=== PATIENT | female | born 1990 | race Caucasian/White ===

== ENCOUNTER 2023-08-11 06:15 | Day surgery (SDC) | payer OTHER, SELFPAY ==
[2023-08-03 10:52] LABS: % Eosinophils 2.5 % (0-6); % Immature Granulocytes 0.3 % (0-0.5); % Lymphocytes 38.4 % (20.5-51.1); % Monocytes 7.7 % (1.7-9.3); % Neutrophils 50.1 % (42.2-75.2); Absolute Basophils 0.1 10^3/uL (0-0.2); Absolute Eosinophils 0.2 10^3/uL (0-0.7); Absolute Lymphocytes 2.7 10^3/uL (1.2-3.4); Absolute Monocytes 0.6 10^3/uL (0.1-0.6); Absolute Neutrophils 3.6 10^3/uL (1.4-6.5); Hematocrit 41.4 % (37.0-47.0); Hemoglobin 14.1 g/dL (12.0-16.0); Mean Corp Hgb Conc. 34.1 g/dL (33.0-37.0); Mean Corpuscular Hgb 30.3 pg (27.0-31.0); Mean Corpuscular Volume 88.8 fL (81.0-99.0); Mean Platelet Volume 8.6 fL (7.4-10.4); Nucleated Red Blood Cells % 0 %; Platelet Count 327 10^3/uL (130-400); Red Blood Cell Count 4.66 10^6/uL (4.20-5.40); Red Cell Dist. Width 12.9 % (11.5-14.5); White Blood Cell Count 7.1 10^3/uL (4.8-10.8)
[2023-08-03 10:55] LABS: HCG, Urine Qualitative Screen Negative
[2023-08-03 11:09] VITALS: BMI 29.2
[2023-08-03 11:25] LABS: Blood Urea Nitrogen 13 mg/dl (7-17); Calcium 9.8 mg/dl (8.4-10.2); Carbon Dioxide 27 mmol/L (22-30); Chloride 103 mmol/L (98-107); Estimated Creatinine Clearance 88 ml/min; Glucose 97 mg/dl (70-99); Potassium 4.3 mmol/L (3.5-5.1); Sodium 138 mmol/L (135-145); eGFR > 60.00
[2023-08-11] VITALS (15 sets, daily range): BP systolic 84–116; BP diastolic 44–71; BMI 29.2
[2023-08-11] MEDS: NORMOSOL-R 1000 IV (09:17)
== END 2023-08-11 13:00 | disposition home or self-care (01) ==
LOC: SDS 06:15
PROVIDERS: ATTENDING PHYSICIAN Obstetrics & Gynecology; FAMILY PHYSICIAN Internal Medicine
DX: D06.0 Carcinoma in situ of endocervix (principal); D06.9 Carcinoma in situ of cervix, unspecified
CPT/HCPCS: 57522; 88305; 88307; 36415; 80048; 81025; 85025; 88341; 88342

== ENCOUNTER 2023-09-29 22:07 | Emergency (ER) | payer OTHER, SELFPAY ==
[2023-09-29 22:10] VITALS: BP 128/88
[2023-09-29 22:23] VITALS: BMI 30.8
--- NOTE | 2023-09-29 22:45 | ED.GENMED ---
History of Present Illness
General
Chief Complaint: Flank Pain
Source: patient and records
Exam Limitations: none
Time Seen by Provider: 09/29/23 22:21
Nursing documentation reviewed up to this point in time: agreed with
Travel History
Have you had any contact with someone who has COVID-19?: No
Do you have any symptoms of coronavirus? Fever > 100 degrees, chills, cough, shortness of breath, sore throat, loss of taste or smell, muscle aches, or headache?: No
History of Present Illness
History of Present Illness:
33-year-old female intermittent right flank pain in the right lower abdomen for for 5 days, nausea without vomiting no fever or chills has a urinary hesitancy, but no hematuria denies states she has had 1 prior kidney stone which passed
spontaneously never formally diagnosed
Past History
Past History
ED Past Medical History: Other (ovarian cyst)
ED Past Surgical History: Gynecological (BTL, c section)
Patient has exhibited threatening behavior?: No
PSI?: No
Social History
Tobacco: Smoker
Alcohol: None
Drug: None
Personal: Single
Living: with family
Employment: Employed
Review of Systems
Review of Systems
All Other Systems: Not applicable
Constitutional: Denies fever or fatigue
EENT: Reports no symptoms
Respiratory: Reports no symptoms
ABD/GI: Reports abdominal pain and nausea
: Reports frequency, flank pain and urgency; Denies bleeding
Musculoskeletal: Reports no symptoms
Phy Exam
Physical Exam
Physical Exam:
Physical Exam
General: no apparent distress, not acutely ill
Neck: No jaundice
Heart: s1/s2 regular rate and rhythm, no murmur. equal radial pulses.
Lungs: no acute respiratory distress. clear bilaterally
Abdomen: Mild tenderness in the right flank and right lower abdomen
Neuro: alert and oriented. no focal neurological deficits
Skin: no rash
Psychiatric: well kept. interactive and cooperative
Extremities: no edema.
Course
Orders/Labs/Results
Orders:
Orders
09/29/23 22:15
Test Result ONCE
09/29/23 22:33
IV Insert/Care/Rem.- Treatment PRN
Complete Blood Count/With Diff Urgent
Comprehensive Metabolic Panel Urgent
HCG, Serum Qualitative Screen Urgent
Lipase Urgent
Comment: ADD ON
Urinalysis Reflex To Culture Urgent
Date Specimen was Collected: 09/29/23
Time Specimen was Collected: 22:15
Urine Microscopic Reflex Cult Urgent
Urine Culture Urgent
ELENA Source: U
Specimen Description:
Date Specimen was Collected: 09/29/23
Time Specimen was Collected: 22:15
0.9% Sodium Chloride 1000 ml [Nss] 1,000 ml IV BOLUS
Ketorolac [Toradol] 30 mg IV NOW STA
Ondansetron Injectable [Zofran] 4 mg IV NOW STA
09/29/23 22:34
CT Abd/pel Without Iv Or Oral Urgent
Comment:
Reason For Exam: r flbillien paoin
09/30/23 00:08
Add On- LAB Urgent
Tests Added?: lipase
US Abdomen Complete/Upper Urgent
Comment:
Reason For Exam: pain
09/30/23 01:55
Dicyclomine [Bentyl] 20 mg PO NOW STA
Abnormal Lab Results
09/29/23
22:33
Absolute Lymphs (auto) 3.8 H 10^3/uL
(1.2-3.4)
Absolute Monos (auto) 0.7 H 10^3/uL
(0.1-0.6)
Glucose 100 H mg/dl
(70-99)
ALT 36 H U/L
(0-35)
Leukocyte Esterase Rfl Trace A
(Negative)
Urine Bacteria (Reflex) Moderate A
(Negative)
Urine Glucose 1+ A
(Negative)
09/29/23 22:33
09/29/23 22:33
Vital Signs
Initial and Last Documented VS:
Initial Vital Signs
Temp Pulse Resp BP Pulse Ox
98.6 F 75 20 128/88 100
09/29/23 22:10 09/29/23 22:10 09/29/23 22:10 09/29/23 22:10 09/29/23 22:10
Last Documented Vital Signs
Temp Pulse Resp BP Pulse Ox
98.3 F 90 15 100/68 96
09/30/23 00:10 09/30/23 00:10 09/30/23 00:10 09/30/23 00:10 09/30/23 00:10
MDM/Problems Addressed
Differential Diagnosis Includes:
UTI pyelonephritis renal colic ovarian cyst appendicitis biliary colic ectopic
MDM/Problems Addressed:
Flank pain
*Critical Care Note
Total Time (30-74mins, 75-104mins- exclusive of procedures): Not Applicable
Update Note
Update Note:
11:50 PM, vision radiology report reviewed no acute pathology labs noted urine noted
Reevaluation patient looks well states he is no longer nauseous she has no lower abdominal tenderness does have some slight right upper abdominal tenderness, will check ultrasound
2 AM ultrasound report noted
ED Attending Note
-
Portions of this chart may have been created with voice recognition software.� Occasional wrong word or��sound alike� substitutions may have occurred due to the inherent limitations of voice recognition software.
Discharge Plan
Departure
Patient Disposition: Home (Routine Discharge)
Date of Disposition: 09/30/23
Time of Disposition: 01:55
Patient with high blood pressure during this ER visit?: No
Condition: Good
Covid-19: Not Applicable
Discharge Problem:
Flank pain
Prescriptions:
New
dicyclomine 20 mg tablet
20 mg PO QID PRN (Reason: abdominal cramps) Qty: 20 0RF
ondansetron 4 mg tablet,disintegrating
4 mg PO Q8H PRN (Reason: nausea and vomiting) Qty: 10 0RF
No Action
Zyrtec
1 tab PO DAILY
Referrals:
Migdalia Ngo MD [Family Provider] - Next open appointment
Interventions
Interventions:
*Risk Screen - Suicide Last Done: 09/29/23 22:10
*General Assessment Last Done: 09/29/23 22:10
*Neglect/Abuse Screening Last Done: 09/29/23 22:10
ED- Fall Risk Assessment Last Done: 09/29/23 22:10
*ED COVID-19 Vaccine History Last Done: 09/29/23 22:10
AB-Oevehp-Dctwoegajo Assessment Last Done: 09/30/23 00:00
ED-Female Genitourinary Assessment Last Done: 09/29/23 22:24
Discharge Date and Time
Print Language: BELGIAN
[2023-09-29 22:46] LABS: % Basophils 0.9 % (0-2); % Eosinophils 2.1 % (0-6); % Immature Granulocytes 0.2 % (0-0.5); % Lymphocytes 43.8 % (20.5-51.1); Absolute Basophils 0.1 10^3/uL (0-0.2); Absolute Eosinophils 0.2 10^3/uL (0-0.7); Absolute Lymphocytes 3.8 10^3/uL (1.2-3.4); Absolute Monocytes 0.7 10^3/uL (0.1-0.6); Absolute Neutrophils 3.9 10^3/uL (1.4-6.5); Hematocrit 38.8 % (37.0-47.0); Hemoglobin 13.6 g/dL (12.0-16.0); Mean Corp Hgb Conc. 35.1 g/dL (33.0-37.0); Mean Corpuscular Hgb 29.8 pg (27.0-31.0); Mean Corpuscular Volume 84.9 fL (81.0-99.0); Mean Platelet Volume 8.2 fL (7.4-10.4); Nucleated Red Blood Cells % 0 %; Platelet Count 334 10^3/uL (130-400); Red Blood Cell Count 4.57 10^6/uL (4.20-5.40); Red Cell Dist. Width 12.9 % (11.5-14.5); White Blood Cell Count 8.6 10^3/uL (4.8-10.8)
[2023-09-29 22:50] LABS: Urine Albumin Negative (Neg - Trace); Urine Bilirubin Negative (Negative); Urine Character Clear (Clear); Urine Color Yellow; Urine Glucose 1+ (Negative); Urine Ketone Negative (Negative); Urine Leukocyte Trace (Negative); Urine Nitrite Negative (Negative); Urine Occult Blood Negative (Negative); Urine Specific Gravity 1.015 (<1.030); Urine Urobilinogen 1+ (Neg - 1+)
[2023-09-29 22:58] LABS: HCG, Serum Qualitative Screen Negative
[2023-09-29 23:02] LABS: ALT (SGPT) 36 U/L (0-35); AST (SGOT) 27 U/L (14-36); Albumin 4.7 g/dl (3.5-5.0); Alkaline Phosphatase 120 U/L (38-126); Blood Urea Nitrogen 12 mg/dl (7-17); Calcium 9.5 mg/dl (8.4-10.2); Carbon Dioxide 26 mmol/L (22-30); Chloride 104 mmol/L (98-107); Estimated Creatinine Clearance 90 ml/min; Glucose 100 mg/dl (70-99); Potassium 3.9 mmol/L (3.5-5.1); Sodium 136 mmol/L (135-145); Total Bilirubin 0.5 mg/dl (0.2-1.3); Total Protein 7.4 g/dl (6.3-8.2); eGFR > 60.00
[2023-09-29] MEDS: ZOFRAN 4 MG IV (23:04)
[2023-09-29] MEDS: TORADOL 30 MG IV (23:04)
[2023-09-29] MEDS: NSS 1000 IV (23:05)
[2023-09-29 23:06] LABS: Urine Bacteria Moderate (Negative); Urine Red Blood Cell 0-2 /HPF (0-2)
[2023-09-30 00:10] VITALS: BP 100/68
[2023-09-30 00:44] LABS: Lipase 223 U/L (23-300)
[2023-09-30 02:00] VITALS: BP 110/80
[2023-09-30] MEDS: BENTYL 20 MG PO (02:02)
== END 2023-09-30 02:05 | disposition home or self-care (01) ==
LOC: EMR 22:07
PROVIDERS: EMERGENCY PHYSICIAN Emergency Medicine; FAMILY PHYSICIAN Internal Medicine
DX: R10.31 Right lower quadrant pain (principal); F17.200 Nicotine dependence, unspecified, uncomplicated; Z98.51 Tubal ligation status
CPT/HCPCS: 99284; 96374; 96375; 96361; 74176; 76700; 80053; 81003; 81015; 83690; 84703; 85025; 87086

== ENCOUNTER 2023-11-17 15:16 | Emergency (ER) | payer SELFPAY ==
[2023-11-17 15:27] VITALS: BP 114/73
--- NOTE | 2023-11-17 16:32 | ED.GENMED ---
History of Present Illness
General
Chief Complaint: Musculo-Skeletal Complaint
Source: patient
Exam Limitations: none
Time Seen by Provider: 11/17/23 15:31
Nursing documentation reviewed up to this point in time: agreed with
Travel History
Have you had any contact with someone who has COVID-19?: No
Do you have any symptoms of coronavirus? Fever > 100 degrees, chills, cough, shortness of breath, sore throat, loss of taste or smell, muscle aches, or headache?: No
History of Present Illness
History of Present Illness:
The patient is a 33-year-old female presenting to the emergency department today with concerns of left thumb discomfort worsening over the past week she works as a hairdresser denies specific trauma. Pain made worse with movement of the thumb.
Past History
Past History
ED Past Medical History: Other (ovarian cyst)
ED Past Surgical History: Gynecological (BTL, c section)
Patient has exhibited threatening behavior?: No
PSI?: No
Social History
Tobacco: Smoker
Alcohol: None
Drug: None
Personal: Single
Living: with family
Employment: Employed
Review of Systems
Review of Systems
Allergies reviewed?: Yes
All Other Systems: ROS reviewed and negative except as documented in HPI and ROS
Phy Exam
Physical Exam
Physical Exam:
GENERAL: Alert , in no apparent distress
EYE: pupils equal and reactive
NECK: Supple, no significant adenopathy.
ENT: o/p clr, mmm.
CARDIAC: Regular rate and rhythm .
LUNGS: Clear breath sounds bilaterally, no acute respiratory distress, no wheezes/rales/rhonchi
ABDOMEN: Soft, without focal tenderness, no r/g, no cvat
NEUROLOGICAL: Alert and oriented, no focal neuro deficits
SKIN: Warm and dry, skin intact.
MUSCULOSKELETAL: N mild tenderness palpation to the base of the thumb on the left hand positive Venice test o edema, well perfused.
PSYCH: Normal and appropriate interaction.
Course
Orders/Labs/Results
Orders:
Orders
11/17/23 15:29
CR Hand - Left Min 3 Views Urgent
Comment:
Reason For Exam: pain, swelling
Vital Signs
Initial and Last Documented VS:
Initial Vital Signs
Temp Pulse Resp BP Pulse Ox
98.0 F 85 18 114/73 98
11/17/23 15:27 11/17/23 15:27 11/17/23 15:27 11/17/23 15:27 11/17/23 15:27
Last Documented Vital Signs
Temp Pulse Resp BP Pulse Ox
98.0 F 85 18 114/73 98
11/17/23 15:27 11/17/23 15:27 11/17/23 15:27 11/17/23 15:27 11/17/23 15:27
MDM/Problems Addressed
MDM/Problems Addressed:
33-year-old female presenting to the emergency department today with concerns of ongoing thumb discomfort. She works as a hairdresser. No specific bony tenderness normal pulses normal cap refill x-ray without acute abnormality. Patient with a
positive Venice's test and tenderness to the base of the thumb. Consistent with likely de Quervain's tenosynovitis. Patient was placed in a thumb spica splint and given information for orthopedic follow-up.
*Critical Care Note
Total Time (30-74mins, 75-104mins- exclusive of procedures): Not Applicable
ED Attending Note
-
Portions of this chart may have been created with voice recognition software.� Occasional wrong word or��sound alike� substitutions may have occurred due to the inherent limitations of voice recognition software.
Discharge Plan
Departure
Patient Disposition: Home (Routine Discharge)
Date of Disposition: 11/17/23
Time of Disposition: 16:33
Patient with high blood pressure during this ER visit?: No
Condition: Good
Covid-19: Not Applicable
Discharge Problem:
De Quervain's disease (tenosynovitis)
Instructions: de Quervain tendinopathy
Prescriptions:
No Action
Zyrtec
1 tab PO DAILY
dicyclomine 20 mg tablet
20 mg PO QID PRN (Reason: abdominal cramps) Qty: 20 0RF
ondansetron 4 mg tablet,disintegrating
4 mg PO Q8H PRN (Reason: nausea and vomiting) Qty: 10 0RF
Referrals:
Millie Castellanos DO [Family Provider] -
Wilson Lo MD [Active] - Follow up in 5-7 days
Activity Restrictions/Additional Instructions:
You came to the emergency department today with concerns of thumb discomfort. You likely have a tenosynovitis to the base of your thumb. Please use the thumb spica splint follow-up with the hand doctor. You also use an NSAID to help with
inflammation as well as ice and elevate. Return to the emergency department any worsening, new or concerning symptoms.
Interventions
Interventions:
*General Assessment Last Done: 11/17/23 15:27
*ED COVID-19 Vaccine History Last Done: 11/17/23 15:27
Discharge Date and Time
Print Language: UZBEK
== END 2023-11-17 16:50 | disposition home or self-care (01) ==
LOC: EMR 15:16
PROVIDERS: EMERGENCY PHYSICIAN Emergency Medicine; FAMILY PHYSICIAN Internal Medicine
DX: M65.4 Radial styloid tenosynovitis [de Quervain] (principal); F17.200 Nicotine dependence, unspecified, uncomplicated; Z98.51 Tubal ligation status
CPT/HCPCS: 99283; 73130

== ENCOUNTER 2024-01-27 15:25 | Emergency (ER) | payer SELFPAY ==
[2024-01-27 15:25] VITALS: BMI 29.2
[2024-01-27 15:26] VITALS: BP 117/89
--- NOTE | 2024-01-27 17:11 | ED.GENMED ---
History of Present Illness
<Uriah Knott MD, Resident - Last Filed: 01/27/24 19:13>
General
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
Time Seen by Provider: 01/27/24 16:32
History of Present Illness
History of Present Illness:
33-year-old female,Ms Peggy Muñoz with past medical history significant for PCOD, carcinoma cervix status post LEEP, July 2023 presented to the ER reporting left lower quadrant pain and spotting since 3 weeks. The pain is gradual in onset,
continuous, squeezing, nonradiating, 12/26 currently, patient took some naproxen, Aleve, Tylenol without much benefit. Patient was on Depo medroxyprogesterone, last shot in June 2023 and she thought her regular menses were returning, and started
as spotting. Patient did not take any pain medication since 1 week. Patient has seen her CLINICAL PRACTICE CONSULTANT on 01/24/2024. No history of fever/chills, lightheadedness/dizziness, chest pain, SOB, dysuria, diarrhea. History of tubal ligation in March 2020.
Past History
<Uriah Knott MD, Resident - Last Filed: 01/27/24 19:13>
Past History
ED Past Medical History: Other (ovarian cyst)
ED Past Surgical History: Gynecological (BTL, c section)
Patient has exhibited threatening behavior?: No
PSI?: No
Social History
Tobacco: Smoker
Alcohol: None
Drug: None
Personal: Single
Living: with family
Employment: Employed
Review of Systems
<Uriah Knott MD, Resident - Last Filed: 01/27/24 19:13>
Review of Systems
All Other Systems: ROS reviewed and negative except as documented in HPI and ROS
Phy Exam
<Uriah Knott MD, Resident - Last Filed: 01/27/24 19:13>
Physical Exam
Physical Exam:
GEN: Well appearing, NAD, WDWN
Eyes: PERRLA, EOMs intact, no scleral icterus
HENT: NCAT, oral mucosa moist, no JVD, no cervical adenopathy.
Lungs: CTAB, no wheezes, rales, rhonchi, normal chest wall excursion
Cardiac: RRR, no M/R/G, no peripheral edema. Radial pulses 2+ bilat
Abdomen: S, tenderness to palpation of the left lower quadrant, no guarding/rigidity, ND, NABS, no masses or hepatosplenomegaly
Pelvic exam: Speculum exam�cervical os normal, vaginal mucosa normal, no masses found, no bleeding noted.
Bimanual exam�no adnexal tenderness
Neuro: AO x 3, no focal deficits to BUE/BLE, normal sensation throughout
Skin: No rashes, petechiae. Normal color, no pallor or jaundice.
Psych: Calm, cooperative, proper hygiene
Course
<Veneela Olman Knott MD, Resident - Last Filed: 01/27/24 19:13>
Orders/Labs/Results
Orders:
Orders
01/27/24 16:34
Test Result ONCE
01/27/24 17:07
Complete Blood Count/With Diff Urgent
Comprehensive Metabolic Panel Urgent
HCG, Serum Qualitative Screen Urgent
01/27/24 17:09
Acetaminophen [Tylenol] 650 mg PO NOW STA
Pelvis & Transvaginal US [US Pelvis W Transvag Combined] Urgent
Comment:
Reason For Exam: abdominal pain
01/27/24 17:25
Urinalysis Urgent
Date Specimen was Collected: 01/27/24
Time Specimen was Collected: 17:23
01/27/24 18:44
Ketorolac [Toradol] 15 mg IV NOW STA
01/27/24 17:07
01/27/24 17:07
Vital Signs
Initial and Last Documented VS:
Initial Vital Signs
Temp Pulse Resp BP Pulse Ox
98.1 F 66 18 117/89 97
01/27/24 15:26 01/27/24 15:26 01/27/24 15:26 01/27/24 15:26 01/27/24 15:26
Last Documented Vital Signs
Temp Pulse Resp BP Pulse Ox
98.1 F 84 18 117/89 100
01/27/24 15:26 01/27/24 16:00 01/27/24 15:26 01/27/24 15:26 01/27/24 17:07
<Juan Cline, DO - Last Filed: 01/27/24 17:54>
Orders/Labs/Results
Orders:
Orders
01/27/24 16:34
Test Result ONCE
01/27/24 17:07
Complete Blood Count/With Diff Urgent
Comprehensive Metabolic Panel Urgent
HCG, Serum Qualitative Screen Urgent
01/27/24 17:09
Acetaminophen [Tylenol] 650 mg PO NOW STA
Pelvis & Transvaginal US [US Pelvis W Transvag Combined] Urgent
Comment:
Reason For Exam: abdominal pain
01/27/24 17:25
Urinalysis Urgent
Date Specimen was Collected: 01/27/24
Time Specimen was Collected: 17:23
01/27/24 18:44
Ketorolac [Toradol] 15 mg IV NOW STA
01/27/24 17:07
01/27/24 17:07
Vital Signs
Initial and Last Documented VS:
Initial Vital Signs
Temp Pulse Resp BP Pulse Ox
98.1 F 66 18 117/89 97
01/27/24 15:26 01/27/24 15:26 01/27/24 15:26 01/27/24 15:26 01/27/24 15:26
Last Documented Vital Signs
Temp Pulse Resp BP Pulse Ox
98.1 F 84 18 117/89 100
01/27/24 15:26 01/27/24 16:00 01/27/24 15:26 01/27/24 15:26 01/27/24 17:07
<Uriah Knott MD, Resident - Last Filed: 01/27/24 19:13>
MDM/Problems Addressed
Differential Diagnosis Includes:
, ectopic , PID, PCOD, cystitis, UTI, renal colic,
MDM/Problems Addressed:
Patient started on IV fluids
CBC, CMP unremarkable beta-hCG negative
Pain control with Tylenol, Toradol
Transvaginal ultrasound-left ovarian dominant follicle�2.2 cm
Urinalysis�no evidence of UTI
Patient is clinically stable to be discharged home.
Follow-up with primary care physician and CLINICAL PRACTICE CONSULTANT within a week.
<Uriah Knott MD, Resident - Last Filed: 01/27/24 19:13>
*Critical Care Note
Total Time (30-74mins, 75-104mins- exclusive of procedures): Not Applicable
ED Attending Note
<Uriah Knott MD, Resident - Last Filed: 01/27/24 19:13>
-
Portions of this chart may have been created with voice recognition software.� Occasional wrong word or��sound alike� substitutions may have occurred due to the inherent limitations of voice recognition software.
<Juan Cline, DO - Last Filed: 01/27/24 17:54>
ED Attending Note
Patient seen and examined by attending physician: Yes
I performed a history and physical exam of patient and discussed management with resident, I reviewed resident's note and agree with documented findings and plan of care.: Yes
ED Attending Note:
I reviewed and agree with history and treatment by Dr. Uriah Knott. My exam revealed
Physical Exam
General: no apparent distress, not acutely ill
Neck: supple. no meningeal signs. normal posterior pharynx
Heart: s1/s2 regular rate and rhythm, no murmur. equal radial
pulses.
HEENT: Pupils equal round reactive to light, EOMI
Lungs: no acute respiratory distress. clear bilaterally
Abdomen: normal bowel sounds. not tender. Mild left lower quadrant/left pelvic tenderness. No no rebound or guarding. No CVAT
Neuro: alert and oriented. no focal neurological deficits
Skin: no rash
Psychiatric: well kept. interactive and cooperative
Extremities: no edema. good distal pulses
Discharge Plan
Departure
Patient Disposition: Home (Routine Discharge)
Date of Disposition: 01/27/24
Time of Disposition: 19:11
Patient with high blood pressure during this ER visit?: No
Condition: Good
Discharge Problem:
Left lower abdominal pain
Instructions: Abdominal Pain
Prescriptions:
No Action
No Current Medications
0
Referrals:
Fly,Millie, DO [Family Provider] -
Activity Restrictions/Additional Instructions:
Follow-up with primary care and CLINICAL PRACTICE CONSULTANT within a week
Interventions
Interventions:
*Risk Screen - Suicide Last Done: 01/27/24 15:26
*General Assessment Last Done: 01/27/24 15:26
*Neglect/Abuse Screening Last Done: 01/27/24 15:26
ED- Fall Risk Assessment Last Done: 01/27/24 16:30
ED-Female Genitourinary Assessment Last Done: 01/27/24 16:30
Discharge Date and Time
Print Language: BENINESE
[2024-01-27 17:28] LABS: % Basophils 0.6 % (0-2); % Eosinophils 2.4 % (0-6); % Immature Granulocytes 0.1 % (0-0.5); % Lymphocytes 37.1 % (20.5-51.1); % Monocytes 6.3 % (1.7-9.3); % Neutrophils 53.5 % (42.2-75.2); Absolute Eosinophils 0.2 10^3/uL (0-0.7); Absolute Lymphocytes 2.7 10^3/uL (1.2-3.4); Absolute Monocytes 0.5 10^3/uL (0.1-0.6); Absolute Neutrophils 3.8 10^3/uL (1.4-6.5); Hematocrit 38.4 % (37.0-47.0); Hemoglobin 13.4 g/dL (12.0-16.0); Mean Corp Hgb Conc. 34.9 g/dL (33.0-37.0); Mean Corpuscular Hgb 29.1 pg (27.0-31.0); Mean Corpuscular Volume 83.3 fL (81.0-99.0); Mean Platelet Volume 8.3 fL (7.4-10.4); Nucleated Red Blood Cells % 0 %; Platelet Count 336 10^3/uL (130-400); Red Blood Cell Count 4.61 10^6/uL (4.20-5.40); Red Cell Dist. Width 12.7 % (11.5-14.5); White Blood Cell Count 7.1 10^3/uL (4.8-10.8)
[2024-01-27 17:33] LABS: Urine Albumin Negative (Neg - Trace); Urine Bilirubin Negative (Negative); Urine Character Clear (Clear); Urine Color Yellow; Urine Glucose Negative (Negative); Urine Ketone Negative (Negative); Urine Leukocyte Negative (Negative); Urine Nitrite Negative (Negative); Urine Occult Blood Negative (Negative); Urine Urobilinogen Negative (Neg - 1+)
[2024-01-27 17:42] LABS: HCG, Serum Qualitative Screen Negative
[2024-01-27] MEDS: TYLENOL 650 MG PO (17:44)
[2024-01-27 17:47] LABS: ALT (SGPT) 29 U/L (0-35); AST (SGOT) 26 U/L (14-36); Albumin 4.6 g/dl (3.5-5.0); Alkaline Phosphatase 118 U/L (38-126); Blood Urea Nitrogen 12 mg/dl (7-17); Calcium 9.7 mg/dl (8.4-10.2); Carbon Dioxide 28 mmol/L (22-30); Chloride 104 mmol/L (98-107); Glucose 80 mg/dl (70-99); Sodium 138 mmol/L (135-145); Total Bilirubin 0.6 mg/dl (0.2-1.3); Total Protein 7.1 g/dl (6.3-8.2); eGFR > 60.00
[2024-01-27 19:10] VITALS: BP 104/70
[2024-01-27] MEDS: TORADOL 15 MG IV (19:11)
== END 2024-01-27 19:37 | disposition home or self-care (01) ==
LOC: EMR 15:25
PROVIDERS: Student in an Organized Health Care Education/Training Program; EMERGENCY PHYSICIAN Emergency Medicine; FAMILY PHYSICIAN Internal Medicine
DX: R10.32 Left lower quadrant pain (principal); E28.2 Polycystic ovarian syndrome; F17.200 Nicotine dependence, unspecified, uncomplicated; Z98.51 Tubal ligation status
CPT/HCPCS: 99284; 96374; 76830; 76856; 80053; 81003; 84703; 85025

== ENCOUNTER 2024-10-26 08:34 | Emergency (ER) | payer OTHER, SELFPAY ==
[2024-10-26 08:42] VITALS: BP 118/90
[2024-10-26 09:54] VITALS: BP 104/71
[2024-10-26 09:55] VITALS: BMI 27.0
[2024-10-26] MEDS: TORADOL 30 MG IV (10:01)
[2024-10-26] MEDS: NSS 1000 IV (10:02)
[2024-10-26 10:09] VITALS: BP 104/71
[2024-10-26 10:12] LABS: % Basophils 0.9 % (0-2); % Eosinophils 3.3 % (0-6); % Lymphocytes 36.2 % (20.5-51.1); % Monocytes 8.5 % (1.7-9.3); % Neutrophils 51.1 % (42.2-75.2); Absolute Basophils 0.1 10^3/uL (0-0.2); Absolute Eosinophils 0.2 10^3/uL (0-0.7); Absolute Lymphocytes 2.3 10^3/uL (1.2-3.4); Absolute Monocytes 0.5 10^3/uL (0.1-0.6); Absolute Neutrophils 3.2 10^3/uL (1.4-6.5); Hemoglobin 12.9 g/dL (12.0-16.0); Mean Corp Hgb Conc. 34.9 g/dL (33.0-37.0); Mean Corpuscular Hgb 30.9 pg (27.0-31.0); Mean Corpuscular Volume 88.7 fL (81.0-99.0); Mean Platelet Volume 8.8 fL (7.4-10.4); Nucleated Red Blood Cells % 0 %; Platelet Count 252 10^3/uL (130-400); Red Blood Cell Count 4.17 10^6/uL (4.20-5.40); Red Cell Dist. Width 13.2 % (11.5-14.5); White Blood Cell Count 6.4 10^3/uL (4.8-10.8)
[2024-10-26 10:23] LABS: HCG, Serum Qualitative Screen Negative
[2024-10-26 10:26] LABS: Blood Urea Nitrogen 14 mg/dl (7-17); Calcium 9.1 mg/dl (8.4-10.2); Carbon Dioxide 25 mmol/L (22-30); Chloride 109 mmol/L (98-107); Estimated Creatinine Clearance 96 ml/min; Glucose 95 mg/dl (70-99); Potassium 4.2 mmol/L (3.5-5.1); Sodium 142 mmol/L (135-145); eGFR > 60.00
[2024-10-26 10:38] LABS: Urine Albumin 1+ (Neg - Trace); Urine Bilirubin Negative (Negative); Urine Character Clear (Clear); Urine Color Yellow; Urine Glucose 2+ (Negative); Urine Ketone Negative (Negative); Urine Leukocyte 1+ (Negative); Urine Nitrite Negative (Negative); Urine Occult Blood Negative (Negative); Urine Urobilinogen Negative (Neg - 1+)
--- NOTE | 2024-10-26 10:49 | ED.GENMED ---
History of Present Illness
General
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
Source: patient
Exam Limitations: none
Time Seen by Provider: 10/26/24 09:23
Nursing documentation reviewed up to this point in time: agreed with
History of Present Illness
History of Present Illness:
pt is a 89 y/o F with h/o ovarian cysts
says she has been having chronic L groin pain/vaginal pain that raditaes into L pelvis for a year
she previuosly has had ovarian cysts but not large and no treatment given
she was on control for a while and transitioned to depo for a few years; stopped depo last year; had her period normally unti augsust when she stopped gettin ga period and developed this constant L vaginal pain into her L pelvis
she saw OB/GYNE through [facility] who said that this was all related to her not having her period and she 'needed to get my period back.'
she had [facility] imaging in 01/2024 showing dominant follicle 2.2 cm left side
she says she wasn't happy with this OB/GYNE opinion
Past History
Past History
ED Past Medical History: Other (ovarian cyst)
ED Past Surgical History: Gynecological (BTL, c section)
Patient has exhibited threatening behavior?: No
PSI?: No
Social History
Tobacco: Smoker
Alcohol: None
Drug: None
Personal: Single
Living: with family
Employment: Employed
Phy Exam
Physical Exam
Physical Exam:
GENERAL: Alert , in no apparent distress
EYE: pupils equal and reactive
NECK: Supple
ENT: o/p clr, mmm.
CARDIAC: Regular rate and rhythm .
LUNGS: Clear breath sounds bilaterally, no acute respiratory distress, no wheezes/rales/rhonchi
ABDOMEN: Soft, without focal tenderness, no r/g, no cvat, normal bowel sounds
: normal external inspection
muinimal white discharge
no erythema
cervix os mild red (scar from LEEP?)
mild L ovarian tenderness
NEUROLOGICAL: Alert and oriented, no focal neuro deficits
SKIN: Warm and dry, skin intact.
MUSCULOSKELETAL: No edema, well perfused. neg rober's sign
PSYCH: Normal and appropriate interaction.
Course
Orders/Labs/Results
Orders:
Orders
10/26/24 09:39
0.9% Sodium Chloride 1000 ml [Nss] 1,000 ml IV BOLUS
Ketorolac [Toradol] 30 mg IV NOW STA
Test Result ONCE
US Pelvis W Transvag Combined Urgent
Comment:
Reason For Exam: L ovarian cyst, pain
10/26/24 09:58
Basic Metabolic Panel Urgent
Complete Blood Count/With Diff Urgent
HCG, Serum Qualitative Screen Urgent
Urinalysis Reflex To Culture Urgent
Specimen Description:
Date Specimen was Collected: 10/26/24
Time Specimen was Collected: 09:53
Urine Microscopic Reflex Cult Urgent
Urine Culture Urgent
ELENA Source: U
Specimen Description:
Date Specimen was Collected: 10/26/24
Time Specimen was Collected: 09:53
Abnormal Lab Results
10/26/24
09:58
RBC 4.17 L 10^6/uL
(4.20-5.40)
Chloride 109 H mmol/L
(98-107)
Leukocyte Esterase Rfl 1+ A
(Negative)
Urine Bacteria (Reflex) Few A
(Negative)
Urine Glucose 2+ A
(Negative)
Urine Albumin (Reflex) 1+ A
(Neg - Trace)
10/26/24 09:58
10/26/24 09:58
Vital Signs
Initial and Last Documented VS:
Initial Vital Signs
Temp Pulse Resp BP Pulse Ox
36.8 C 72 16 118/90 98
10/26/24 08:42 10/26/24 08:42 10/26/24 08:42 10/26/24 08:42 10/26/24 08:42
Last Documented Vital Signs
Temp Pulse Resp BP Pulse Ox
36.4 C 56 16 104/71 100
10/26/24 10:09 10/26/24 10:09 10/26/24 10:09 10/26/24 10:09 10/26/24 10:30
MDM/Problems Addressed
Differential Diagnosis Includes:
Ovarian cyst, malignancy
MDM/Problems Addressed:
34-year-old female with left-sided pelvic pain for the last year, known left-sided ovarian cyst versus follicle seen on previous imaging. Sounds as if the pain is becoming more regular again. He does not significantly come and go, is not
positional, she has no discharge or concern for STI. She has no urinary symptoms, radiation into her leg wrapping around to her back. There is no labial swelling. Her pelvic exam was unremarkable other than her cervix appearing safely
erythematous at the os, she is status post a LEEP previously and says she has been checked several times and there is no recurrence of her cervical dysplasia. Patient's ultrasound reveals a ovoid like left-sided ovarian cyst that is double in size
but it was several months ago. She also has a fibroid. She was given a copy of this report and encouraged to follow-up with EMERGENCY MANAGEMENT COORDINATOR. In the meantime Tylenol and ibuprofen for pain
*Critical Care Note
Total Time (30-74mins, 75-104mins- exclusive of procedures): Not Applicable
ED Attending Note
-
Portions of this chart may have been created with voice recognition software.� Occasional wrong word or��sound alike� substitutions may have occurred due to the inherent limitations of voice recognition software.
Discharge Plan
Departure
Patient Disposition: Home (Routine Discharge)
Date of Disposition: 10/26/24
Time of Disposition: 13:09
Patient with high blood pressure during this ER visit?: No
Condition: Fair
Covid-19: Not Applicable
Discharge Problem:
Ovarian cyst
Instructions: Ovarian cyst - ED discharge instructions
Prescriptions:
No Action
No Current Medications
0
Referrals:
Millie Castellanos, DO [Family Provider] -
Annie Isaacs, DO [Active] - Follow up in 5-7 days
Activity Restrictions/Additional Instructions:
You have a left-sided ovarian cyst that does look benign however it has grown in size since previous imaging. It is important that you follow-up with GREEN CHAIN WORKER for further management. You may need more diagnostics. In the meantime take Tylenol and
ibuprofen for pain. Return for any concerns
Interventions
Interventions:
*Risk Screen - Suicide Last Done: 10/26/24 08:42
*General Assessment Last Done: 10/26/24 10:09
*Neglect/Abuse Screening Last Done: 10/26/24 08:42
*ED- Fall Risk Assessment Last Done: 10/26/24 10:09
*ED COVID-19 Vaccine History Last Done: 10/26/24 10:09
*Nursing Disposition Last Done: 10/26/24 13:26
ED-Female Genitourinary Assessment Last Done: 10/26/24 10:09
Discharge Date and Time
Discharge Date/Time: 10/26/24 13:33
Print Language: YI
[2024-10-26 11:00] LABS: Urine Bacteria Few (Negative); Urine Red Blood Cell 0-2 /HPF (0-2)
== END 2024-10-26 13:33 | disposition home or self-care (01) ==
LOC: EMR 08:34
PROVIDERS: Physician Assistant; EMERGENCY PHYSICIAN Emergency Medicine; FAMILY PHYSICIAN Internal Medicine
DX: N83.202 Unspecified ovarian cyst, left side (principal); F17.200 Nicotine dependence, unspecified, uncomplicated
CPT/HCPCS: 96374; 96361; 99284; 76830; 76856; 80048; 81003; 81015; 84703; 85025; 87086